=== PATIENT | male | born 2000 | race Two or more races ===

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

== ENCOUNTER 2024-05-01 13:23 | Emergency (ER) | payer MEDICAID ==
[~2024-05-01] VITALS: Ht 170.2 cm; Wt 56.0 kg
[2024-05-01 13:26] VITALS: TEMP 98.4; O2SAT 98
[2024-05-01] MEDS ORDERED: HALDOL (13:26)
[2024-05-01 15:19] LABS: CHLORIDE 103 mEq/L (98-107); POTASSIUM 3.5 mEq/L (3.5-5.1); SODIUM 138 mEq/L (136-145)
[2024-05-01 15:20] LABS: CARBON DIOXIDE 26 mEq/L (21-32)
[2024-05-01 15:21] LABS: CALCIUM 9.7 mg/dL (8.7-10.4)
[2024-05-01 15:22] LABS: BASOPHILS % 0.4 % (0.0-2.0); HEMATOCRIT. 41.7 % (42.0-52.0); LYMPHOCYTES % 11.7 % (20.0-50.0); MEAN CORPUSCULAR HEMOGLOBIN 31.7 pg (28.0-32.0); MEAN CORPUSCULAR HGB CONC 33.5 g/dL (31.0-37.0); MEAN CORPUSCULAR VOLUME 94.6 fL (80.0-94.0); MEAN PLATELET VOLUME 7.5 fl (7.4-10.4); MONOCYTES % 5.1 % (2.0-8.0); NEUTROPHILS % 82.8 % (40.0-76.0); PLATELET 323 x1000/uL (130-400); RED BLOOD CELL COUNT 4.41 mill/uL (4.7-6.1); RED CELL DISTRIBUTION WIDTH 12.3 % (11.6-14.6); WHITE BLOOD COUNT 9.4 x1000/uL (4.5-11.0)
[2024-05-01 15:26] LABS: CREATININE 0.7 mg/dL (0.6-1.3); GLUCOSE 91 mg/dL (70-105); UREA NITROGEN BLOOD 7 mg/dL (9-23)
[2024-05-01 15:28] LABS: CREATINE KINASE 537 IU/L (46-171)
[2024-05-01] MEDS ORDERED: B50 MT (15:38)
[2024-05-01 16:55] VITALS: BP 116/66; PULSE 59; RESP 16
== END 2024-05-01 16:56 | disposition home or self-care (01) ==
LOC: ER 13:23
DX: G24.02 Drug induced acute dystonia (principal)
CPT/HCPCS: 36415; 80048; 82550; 85025; 99283

== ENCOUNTER 2024-05-23 12:38 | Emergency (ER) | payer MEDICAID ==
[~2024-05-23] VITALS: Ht 175.3 cm; Wt 59.0 kg
[~2024-05-23 12:38] MED LIST: B50 MT; HALDOL
[2024-05-23 12:49] VITALS: BP 121/74; PULSE 64; TEMP 98.8; O2SAT 100
[2024-05-23] MEDS ORDERED: TOPUD MT (14:02)
== END 2024-05-23 13:53 | disposition home or self-care (01) ==
LOC: ER 12:38
DX: R59.1 Generalized enlarged lymph nodes (principal)
CPT/HCPCS: 99282

== ENCOUNTER 2024-06-26 10:59 | Emergency (ER) | payer MEDICAID ==
[~2024-06-26] VITALS: Ht 175.3 cm; Wt 62.0 kg
[~2024-06-26 10:59] MED LIST changes: +TOPUD MT
[2024-06-26 11:11] VITALS: O2SAT 99
[2024-06-26] MEDS: TETANUS, DIPHTHERIA, PERTUSSIS VAC/PF 0.5ML (>10YR OLD) IM ONE (12:32)
[2024-06-26] MEDS: BACITRACIN ZINC OINT UDPKT TOP ONE (13:02)
[2024-06-26] MEDS: IBUPROFEN 600MG TABLET PO ONE (13:03)
[2024-06-26] MEDS ORDERED: IBUP-2028 MT (13:04)
[2024-06-26] MEDS ORDERED: BO1 TP (13:04)
[2024-06-26 13:17] VITALS: BP 128/76; PULSE 100; RESP 16; TEMP 37.11408; O2SAT 99
== END 2024-06-26 14:12 | disposition home or self-care (01) ==
LOC: ER 10:59
DX: S60.221A Contusion of right hand, initial encounter (principal); Z98.890 Other specified postprocedural states; X58.XXXA Exposure to other specified factors, initial encounter; Y93.89 Activity, other specified; Y92.89 Other specified places as the place of occurrence of the external cause; Y99.8 Other external cause status
CPT/HCPCS: 29130; 73130; 90471; 90715; 99283

== ENCOUNTER 2024-07-06 11:00 | Emergency (ER) | payer BC, MEDICAID ==
[~2024-07-06] VITALS: Ht 175.3 cm; Wt 59.0 kg
[~2024-07-06 11:00] MED LIST changes: +BO1 TP; +IBUP-2028 MT
[2024-07-06 11:04] VITALS: O2SAT 100
[2024-07-06 11:23] VITALS: BP 116/65; PULSE 62; RESP 16; TEMP 98.2; O2SAT 100
[2024-07-06 12:18] LABS: BASOPHILS % 0.6 % (0.0-2.0); EOSINOPHILS % 1.2 % (0.0-5.0); HEMATOCRIT. 44.3 % (42.0-52.0); HEMOGLOBIN. 14.3 g/dL (14.0-18.0); LYMPHOCYTES % 33.9 % (20.0-50.0); MEAN CORPUSCULAR HEMOGLOBIN 30.9 pg (28.0-32.0); MEAN CORPUSCULAR HGB CONC 32.4 g/dL (31.0-37.0); MEAN CORPUSCULAR VOLUME 95.4 fL (80.0-94.0); MEAN PLATELET VOLUME 7.3 fl (7.4-10.4); MONOCYTES % 6.9 % (2.0-8.0); NEUTROPHILS % 57.4 % (40.0-76.0); PLATELET 283 x1000/uL (130-400); RED BLOOD CELL COUNT 4.64 mill/uL (4.7-6.1); RED CELL DISTRIBUTION WIDTH 12.4 % (11.6-14.6); WHITE BLOOD COUNT 6.4 x1000/uL (4.5-11.0)
[2024-07-06 12:36] LABS: CHLORIDE 106 mEq/L (98-107); SODIUM 139 mEq/L (136-145)
[2024-07-06 12:37] LABS: CARBON DIOXIDE 29 mEq/L (21-32)
[2024-07-06 12:38] LABS: CALCIUM 9.8 mg/dL (8.7-10.4)
[2024-07-06 12:43] LABS: CREATININE 0.8 mg/dL (0.6-1.3); GLUCOSE 99 mg/dL (70-105); UREA NITROGEN BLOOD 12 mg/dL (9-23)
[2024-07-06 12:44] LABS: ALANINE AMINOTRANSFERASE 15 IU/L (10-49); ALBUMIN 4.9 g/dL (3.2-4.8); ASPARTATE AMINOTRANSFERASE 17 IU/L (<34)
[2024-07-06 12:45] LABS: BILIRUBIN DIRECT 0.3 mg/dL (<=3.0); BILIRUBIN TOTAL 0.9 mg/dL (0.1-1.0); PROTEIN TOTAL 7.4 g/dL (6.0-8.3)
[2024-07-06] MEDS: ONDANSETRON 4MG ODT PO NR (13:22)
[2024-07-06] MEDS: FAMOTIDINE 20MG TABLET PO NR (13:22)
[2024-07-06] MEDS: MAGNESIUM/ALUMINUM HYDROXIDE/SIMETHICONE 30ML UDC PO NR (13:22)
[2024-07-06] MEDS ORDERED: FAMO-135 MT (15:26)
[2024-07-06] MEDS ORDERED: ONDA4TAB50 MT (15:26)
== END 2024-07-06 20:06 | disposition home or self-care (01) ==
LOC: ER 11:00
DX: K29.70 Gastritis, unspecified, without bleeding (principal); Z79.899 Other long term (current) drug therapy
CPT/HCPCS: 99284; 74176; 76705; 80076; 80048; 83690; 85025; 86850; 86900; 86901; 36415; Q0162